=== PATIENT | female | born 1975 | race Caucasian/White ===

== ENCOUNTER 2016-08-02 09:47 | Emergency (ER) ==
[2016-08-02 10:14] LABS: MANUAL DIFF NEEDED? NO
[2016-08-02 10:24] LABS: BASO% 0.5 % (0.0-0.8); EOS# 0.03 X1000 (0.0-0.7); EOS% 0.3 % (0.0-10.0); HEMATOCRIT 34.2 % (37.0-47.0); HEMOGLOBIN 10.3 g/dL (12.0-16.0); IMM GRAN# 0.02 X1000 (0.0-0.04); IMM GRAN% 0.2 % (0.0-0.5); LYMPH# 0.88 X1000 (1.2-3.4); LYMPH% 9.9 % (20.5-51.1); MCH 25.4 PG (27-31); MCHC 30.1 g/dL (33-37); MCV 84.2 FL (81-99); MONO# 0.42 X1000 (0.11-0.59); MONO% 4.7 % (1.7-9.3); MPV 10.2 FL (7.4-10.4); NEUT% 84.4 % (42.2-75.2); PLT 279 X1000 (130-400); RBC 4.06 XMIL (4.2-5.4)
--- NOTE | 2016-08-02 10:33 | Diag Imaging Result Document ---
PROCEDURE NAME: CHEST-PORTABLE - 08/02/2016 PORTABLE CHEST: COMPARISON: No comparison films. FINDINGS: The lungs are well expanded. The heart is not enlarged. The vessels are not distended. No infiltrates. No pleural effusions identified. IMPRESSION: No pneumonia.
[2016-08-02 10:35] LABS: AGAP 11; ALBUMIN 4.2 g/dL (3.5-5.0); ALKALINE PHOSPHATASE 28 U/L (32-104); BUN 9 mg/dL (8-22); CALCIUM 8.8 mg/dL (8.8-10.2); CHLORIDE 104 mmol/L (98-107); COSMO 276; GOT 16 U/L (10-30); GPT 15 U/L (10-36); POTASSIUM 4.1 mmol/L (3.5-5.1); SODIUM 139 mmol/L (136-145); TCO2 24 mmol/L (25-35); TOTAL BILIRUBIN 0.29 mg/dL (0.20-1.00); TOTAL PROTEIN 6.8 g/dL (6.3-8.3)
--- NOTE | 2016-08-02 10:58 | PROVIDER DOCUMENTATION ---
HPI-General Adult <Shelia Pereazie - Last Filed: 08/02/16 12:30> - General Source: patient - History of Present Illness -Gen Adult Nature of Presenting Problems: 41 y/o WF c hx of RA, on multiple immunosuppresive medications, c/o cough 3 of the last 6 weeks, recently treated for pneumonia twice with Levaquin and Amoxicillin, finished both of those this past week. States she is having right back pain, tender just to the touch, that felt like her previous right sided pneumonia. Feels weak and fatigued. Denies fevers, reports chills. Denies sob or wheezing. States she has never really felt better since the original infection. Reports nausea, denies vomiting or abdominal pain <Shannan Vásquez - Last Filed: 08/02/16 14:57> - General Chief Complaint: Cough Stated Complaint: COUGHING,DRY HEAVING,POSS PNUEMONI Time Seen by Provider: 08/02/16 10:53 Allergies/Adverse Reactions: Patient Allergies Allergy/AdvReac Type Severity Reaction Status Date / Time homatropine Allergy HIVES Verified 08/02/16 10:08 [From Hycodan (with homatropin)] homatropine methylbromide * Allergy HIVES Verified 08/02/16 10:08 [From Hycodan (with homatropin)] hydrocodone bitartrate * Allergy HIVES Verified 08/02/16 10:08 [From Hycodan (with homatropin)] metoclopramide HCl * Allergy HIVES Verified 08/02/16 10:08 [From Reglan] prochlorperazine Allergy HIVES Verified 08/02/16 10:08 [From Compazine] prochlorperazine edisylate * Allergy HIVES Verified 08/02/16 10:08 [From Compazine] prochlorperazine maleate * Allergy HIVES Verified 08/02/16 10:08 [From Compazine] Home Medications: Home Medication List Medication Instructions Recorded Confirmed Last Taken Type Promethazine [Phenergan] 25 mg PO Q6H PRN PRN #20 tablet 08/02/16 Unknown Rx Tramadol/APAP [Ultracet 1 each PO Q6H PRN PRN #10 tablet 03/17/17 Unknown Rx 37.5MG/325Mg] Review of Systems - Adult - REVIEW OF SYSTEMS - ADULT Constitutional: reports: see HPI, chills, fatique. denies: fever Eyes: reports: no symptoms reported. denies: blurred vision, double vision, eye pain Ears, Nose, Mouth & Throat: reports: no symptoms reported. denies: ear pain, nose pain, throat pain Cardiovascular: reports: no symptoms reported. denies: chest pain, palpitations Respiratory: reports: see HPI, cough. denies: shortness of breath, wheezing Gastrointestinal: reports: see HPI, nausea, poor appetite. denies: abdominal pain, diarrhea, vomiting Genitourinary: reports: no symptoms reported. denies: dysuria, discharge, frequency Musculoskeletal: reports: see HPI, muscle aches. denies: bone pain, back pain, joint pain Integumentary: reports: no symptoms reported. denies: rash Neurological: reports: no symptoms reported. denies: ataxia, dizziness/vertigo , headache/migraines Psychiatric: reports: no symptoms reported Endocrine: reports: no symptoms reported Hematologic/Lymphatic: reports: no symptoms reported Allergic/Immunologic: reports: no symptoms reported All Other Systems: Reviewed and Negative <Shannan Vásquez - Last Filed: 08/02/16 14:57> Past History - Adult - PAST MEDICAL HISTORY-ADULT Review of Records: reports: Old Records Reviewed, Nursing Assessment Review, Medications Reviewed, Social history reviewed & non-contributory. Major Childhood Illnesses: reports: denies history Cardiovascular: reports: denies history Respiratory: reports: denies history Gastrointestinal: reports: denies history Obstetrical/Gynecological: reports: denies history Genitourinary: reports: denies history Musculoskeletal: reports: arthritis (RA) Neurological: reports: denies history Endocrine/Immune: reports: denies history Other Conditions: reports: denies history - PRIOR SURGERIES/PROCEDURES Surgical/Procedure History: reports: reviewed, not pertinent - IMMUNIZATION STATUS Childhood Immunizations: See Nurse Assessment Flu Vaccine: See Nurse Assessment - FAMILY HISTORY Family History: reviewed, not pertinent - SOCIAL HISTORY Smoking: denies Substance Use: none/never Alcohol Use Frequency: never Living Situation: family <Shannan Vásquez - Last Filed: 08/02/16 14:57> Physical Exam-General - PHYSICAL EXAM-ADULT Initial Vital Signs Reviewed: Yes - CONSTITUTIONAL General Appearance: appears well, alert, mild distress, thin - EYES Eyes: PERRL/EOMI, pink conjunctivae - HEAD, EARS, NOSE, MOUTH & THROAT HENMT: normocephalic/atraumatic, moist mucous membranes, normal ENT inspection, TMs normal, pharynx normal - NECK Neck: non-tender, full range of motion, supple, normal inspection. negative: lymphadenopathy - RESPIRATORY Respiratory: chest non-tender, lungs clear, normal breath sounds, no pleuratic chest pain, no respiratory distress, no accessory muscle use. negative: respiratory distress, decreased breath sounds, accessory muscle use, crackles, rales, rhonchi, wheezing - CARDIOVASCULAR Cardiovascular: normal peripheral pulses, regular rate, rhythm - GASTROINTESTINAL (ABDOMEN) Abdominal Exam: normal bowel sounds, non tender, soft, no organomegaly, no pulsatile mass. negative: abdominal bruit, abnormal bowel sounds, distended, guarding, rigid, rebound, tenderness - MUSCULOSKELETAL Back Exam: normal inspection Extremity: normal range of motion, non-tender, normal gait, normal inspection - SKIN Integumentary: normal color, normal turgor, warm/dry, other (the skin is tender to light touch on the right flank. There is no evidence of rash in this location ) - NEUROLOGIC Neurologic: grossly normal, no motor/sensory deficits - PSYCHIATRIC Psych/Mental Status: normal mood/affect, normal thought content, normal thought process, oriented x 3 <Shannan Vásquez - Last Filed: 08/02/16 14:57> Progress - REASSESSMENT Reassessment #1 Time Reassessed: 12:30 (pt and family wants a CT of lungs. ) Status: unchanged <Flavia Perea - Last Filed: 08/02/16 12:30> - PLAN OF CARE/RESULTS Progress/Plan/Lab Results: Discussed patient with Dr. James after CBC, CMP and CXR returned. States to get ABG and UA. She will come to bedside. Vital Signs Temp Pulse Resp BP Pulse Ox 08/02/16 12:15 98.4 F 86 18 132/81 100 08/02/16 10:02 97.7 F 91 H 18 152/82 100 homatropine [From Hycodan (with homatropin)] Allergy (Verified 08/02/16 10:08) HIVES homatropine methylbromide * [From Hycodan (with homatropin)] Allergy (Verified 08/02/16 10:08) HIVES hydrocodone bitartrate * [From Hycodan (with homatropin)] Allergy (Verified 10:08) HIVES metoclopramide HCl * [From Reglan] Allergy (Verified 08/02/16 10:08) HIVES prochlorperazine [From Compazine] Allergy (Verified 08/02/16 10:08) HIVES prochlorperazine edisylate * [From Compazine] Allergy (Verified 08/02/16 10:08) HIVES prochlorperazine maleate * [From Compazine] Allergy (Verified 08/02/16 10:08) HIVES I&O 08/01/16 08/02/16 08/03/16 06:59 06:59 06:59 Output Total 50 Balance -50 Laboratory 08/02/16 08/02/16 08/02/16 12:30 11:58 10:50 WBC RBC Hgb Hct MCV MCH MCHC RDW Std Deviation Plt Count MPV Immature Gran % (Auto) Neut % (Auto) Lymph % (Auto) Wy[place] % (Auto) Eos % (Auto) Baso % (Auto) Immature Gran # (Auto) Neut # (Auto) Lymph # (Auto) Wythe # (Auto) Eos # (Auto) Baso # (Auto) Specimen Type ARTERIAL Sample Site R RADIAL pH 7.53 H pCO2 27 L pO2 134 H HCO3 25.3 Base Excess 0.5 Oxyhemoglobin 96.8 ABG O2 Sat (Calculated) 13.5 L ABG O2 Saturation 99.7 ABG Carboxyhemoglobin 1.60 ABG Methemoglobin 1.3 Leland Test YES A-a O2 Difference -18.0 Total Hemoglobin 9.7 L Lactate 0.60 Blood Gas Modality ROOM AIR FiO2 % 21.0 Sodium Potassium Chloride Carbon Dioxide Anion Gap BUN Creatinine Estimated GFR/1.73 m2 BUN/Creatinine Ratio Glucose Calculated Osmolality Calcium Total Bilirubin AST ALT Alkaline Phosphatase Sca-[id number]-[id number] Pept 127 Total Protein Albumin Globulin Albumin/Globulin Ratio Urine Source Urine Color Urine Turbidity Urine pH Ur Specific Reardan Urine Protein Ur Glucose (Stick) Ur Ketones (Stick) Urine Blood Urine Nitrite Urine Bilirubin Urobilinogen Dipstick Urine Leukocytes Urine WBC (Auto) Urine RBC (Auto) U Epithel Cells (Auto) Urine Bacteria (Auto) Urine Test NEGATIVE 08/02/16 08/02/16 08/02/16 10:50 10:10 10:10 WBC 8.86 RBC 4.06 L Hgb 10.3 L Hct 34.2 L MCV 84.2 MCH 25.4 L MCHC 30.1 L RDW Std Deviation 13.7 Plt Count 279 MPV 10.2 Immature Gran % (Auto) 0.2 Neut % (Auto) 84.4 H Lymph % (Auto) 9.9 L [place] % (Auto) 4.7 Eos % (Auto) 0.3 Baso % (Auto) 0.5 Immature Gran # (Auto) 0.02 Neut # (Auto) 7.47 H Lymph # (Auto) 0.88 L Wy[place] # (Auto) 0.42 Eos # (Auto) 0.03 Baso # (Auto) 0.04 Specimen Type Sample Site pH pCO2 pO2 HCO3 Base Excess Oxyhemoglobin ABG O2 Sat (Calculated) ABG O2 Saturation ABG Carboxyhemoglobin ABG Methemoglobin Leland Test A-a O2 Difference Total Hemoglobin Lactate Blood Gas Modality FiO2 % Sodium 139 Potassium 4.1 Chloride 104 Carbon Dioxide 24 L Anion Gap 11 BUN 9 Creatinine 0.8 Estimated GFR/1.73 m2 > 60 BUN/Creatinine Ratio 11 Glucose 90 Calculated Osmolality 276 Calcium 8.8 Total Bilirubin 0.29 AST 16 ALT 15 Alkaline Phosphatase 28 L Lqj-G-Zziwktyides Pept Total Protein 6.8 Albumin 4.2 Globulin 2.6 Albumin/Globulin Ratio 1.6 Urine Source CLEAN CATCH Urine Color STRAW Urine Turbidity CLEAR Urine pH 6.5 Ur Specific Reardan 1.004 Urine Protein NEGATIVE Ur Glucose (Stick) NEGATIVE Ur Ketones (Stick) NEGATIVE Urine Blood NEGATIVE Urine Nitrite NEGATIVE Urine Bilirubin NEGATIVE Urobilinogen Dipstick NORMAL Urine Leukocytes NEGATIVE Urine WBC (Auto) <10 Urine RBC (Auto) <10 U Epithel Cells (Auto) <10 Urine Bacteria (Auto) NEGATIVE Urine Test Orders Category Date Time Status ED: Urine Bedside ORDERED Care 08/02/16 13:21 Active ANGIOGRAM/PULMONARY ARTERIES [CT] Stat Exams 08/02/16 12:29 Taken CHEST-PORTABLE [RAD] Stat Exams 08/02/16 09:53 Completed ABG [RESP] Routine Lab 08/02/16 11:58 Completed BNP [PRO B-NATRIURETIC PEPTIDE] Stat Lab 08/02/16 12:30 Completed CBC WITH ELECTRONIC DIFF [HEME] Stat Lab 08/02/16 10:10 Completed CMP [COMPREHENSIVE METABOLIC PANEL] [CHEM] Stat Lab 08/02/16 10:10 Completed TEST-URINE [PREG] Stat Lab 08/02/16 10:50 Completed UA Reflex [URINALYSIS W/POSS RFLX CULT] [URINALYSIS] Lab 08/02/16 10:50 Completed Stat Ondansetron Odt [Zofran Odt] Med 08/02/16 11:01 Discontinued 8 mg PO NOW ONE Promethazine [Phenergan] Med 08/02/16 12:03 Discontinued 25 mg IM NOW ONE Tramadol [Ultram] Med 08/02/16 13:50 Discontinued 50 mg PO NOW ONE Discussed findings with Dr. James, who reviewed chart, labs, and radiology, also came to bedside with patient. Agrees with treatment, disposition and plan. - REASSESSMENT Reassessment #2 Time Reassessed: 13:19 (Dr. James to bedside. family demanding CT chest. Dr. James put in for D-Dimer, BNP and CTA chest. ) Status: unchanged - XRAY 1 XRAY: Bilateral XRAY Study: Chest Impression: Normal (NAD per radiology) - CT/MRI 1 CT Study: Thorax Impression: Normal (1. No PE or other acute chest pathology. 2. Nonspecific small bowel gas in LUQ, May be Ileus. per Dr. Dawson, radiology) <Shannan Vásquez - Last Filed: 08/02/16 14:57> Departure <Flavia Perea - Last Filed: 08/02/16 12:30> - Departure Time of Disposition Order: 14:54 Certified Medical Emergency: Emergent <Shannan Vásquez - Last Filed: 08/02/16 14:57> - Departure DIAGNOSIS: Amplified musculoskeletal pain syndrome, Viral syndrome Nausea & vomiting Qualifiers: Vomiting type: unspecified Vomiting Intractability: non-intractable Qualified Code(s): R11.2 - Nausea with vomiting, unspecified Disposition: HOME 01 Condition: Stable Additional Instructions: Follow up with your primary care physician ED Follow Up Instructions: You have been treated by a care provider in the Emergency Department. These instructions are being provided to you so you can have an understanding of how to care for yourself upon discharge. Upon discharge from the Emergency Department, you are responsible for making arrangements for follow-up care by a physician of your choice. Take all prescribed medications as directed. Return to the Emergency Department immediately for any new or worsening symptoms. You may call the Physician Referral phone number at [phone] to obtain a list of Physicians who are taking new patients. Prescriptions: Promethazine [Phenergan] 25 mg PO Q6H PRN PRN #20 tablet PRN Reason: Nausea Tramadol/APAP [Ultracet 37.5MG/325Mg] 1 each PO Q6H PRN PRN #10 tablet PRN Reason: Pain Attestation - Scribe Verification/Attestation Scribe:: Flavia Perea Acting as Scribe for:: Michael James Scribe documention review:: This chart was documented by a scribe and accurately reflects the service the provider performed and the decisions made by the provider. <Flavia Perea - Last Filed: 08/02/16 12:30> - Physician/ ANA Attestation Patient care was provided by Advanced Practice Provider:: Yes Advanced Practice Provider:: Shannan Vásquez Advanced Practice Provider documentation review:: The Mid-level provider documentation, treatment plan and medical decision making was reviewed by the physician who agrees with all treatment and medical decision making by the MLP. The physician spent face to face time with patient:: Yes Advanced Practice Provider documentation review:: The physician spent face to face time with this patient and agrees with all MLP documentation, treatment, and medical decision making by the MLP. See provider notes for further information. <Shannan Vásquez - Last Filed: 08/02/16 14:57> Physician Attestation
[2016-08-02] MEDS ORDERED: ZOFRAN ODT PO ONE (11:01)
[2016-08-02 11:24] LABS: URINE CULTURE NEEDED? NO; URINE MICRO REVIEW NEEDED? NO; URINE SOURCE CLEAN CATCH
[2016-08-02 11:28] LABS: BILIRUBIN URINE NEGATIVE (NEGATIVE); BLOOD URINE NEGATIVE (NEGATIVE); COLOR STRAW; GLUCOSE URINE NEGATIVE (NEGATIVE); LEUKOCYTES URINE NEGATIVE (NEGATIVE); NITRITE URINE NEGATIVE (NEGATIVE); PH URINE 6.5; PROTEIN URINE NEGATIVE (NEGATIVE); SP GRAVITY URINE 1.004; TURBIDITY URINE CLEAR (CLEAR); UROBILINOGEN URINE NORMAL (NORMAL)
[2016-08-02 11:29] LABS: UR EPITHELIAL CELLS <10 /HPF (<10); URINE BACTERIA NEGATIVE /HPF; URINE RBC <10 /HPF (<10); URINE WBC <10 /HPF (<10)
[2016-08-02] MEDS ORDERED: PHENERGAN IM ONE (12:03)
[2016-08-02 12:09] LABS: ALLEN TEST YES; BE 0.5 mmoll (-3.0-3.0); BLOOD TYPE ARTERIAL; DRAW SITE R RADIAL; METHB 1.3 % (0.0-1.5); MODALITY ROOM AIR; O2(CT) 13.5 mL/dL (15.0-23.0); PCO2(98.6) 27 mmHg (35-45); PO2(98.6) 134 mmHg (60-100); SAMPLE BLOOD; SAO2 99.7 % (95.0-100.0); THB 9.7 g/dL (11.5-17.4); pH(98.6) 7.53 (7.35-7.45)
[2016-08-02 12:15] VITALS: BP 132/81
[2016-08-02] MEDS ORDERED: ULTRAM PO ONE (13:50)
[2016-08-02] MEDS ORDERED: ATIVAN IV ONE (14:56)
--- NOTE | 2016-08-02 15:09 | Diag Imaging Result Document ---
PROCEDURE NAME: ANGIOGRAM/PULMONARY ARTERIES - 08/02/2016 CTA CHEST: COMPARISON: None available. FINDINGS: There is no evidence of pulmonary embolism. There is no evidence of aortic dissection or aneurysm. The heart is not enlarged. There is no evidence of mediastinal or hilar lymphadenopathy. The lungs are clear. There is no pleural fluid collection and no pneumothorax. Limited views of the upper abdomen reveal a few gas-filled loops of small bowel with mild left upper quadrant. These are nonspecific. It may simply represent ileus. Please correlate clinically. IMPRESSION: 1. No evidence of pulmonary embolism or other definite acute chest pathology. 2. Nonspecific gas-filled loops of small bowel in the left upper quadrant of the abdomen.
== END 2016-08-02 15:22 | disposition home or self-care (01) ==
LOC: ED 09:47
DX: B34.9 Viral infection, unspecified (principal); M79.1 Myalgia; R11.2 Nausea with vomiting, unspecified; R05 Cough; R53.1 Weakness; R53.83 Other fatigue; R68.83 Chills (without fever); M54.89 Other dorsalgia; M06.9 Rheumatoid arthritis, unspecified; R10.9 Unspecified abdominal pain; Z79.899 Other long term (current) drug therapy
CPT/HCPCS: 36415; 71010; 71275; 80053; 81001; 81025; 82805; 83880; 85025; 96372; 96374; J2060; J2550; Q9967; S0181